=== PATIENT | female | born 1995 ===

== ENCOUNTER 2018-05-22 12:13 | Inpatient (IN) | payer OTHER ==
[2018-05-22] MEDS ORDERED: TYLENOL PO PRN (12:47)
[2018-05-22] MEDS ORDERED: TUCKS PAD TP PRN (12:47)
[2018-05-22] MEDS ORDERED: PHENERGAN PO PRN (12:47)
[2018-05-22] MEDS ORDERED: DULCOLAX PR PRN (12:47)
[2018-05-22] MEDS ORDERED: BENADRYL PO PRN (12:47)
[2018-05-22] MEDS ORDERED: ZOFRAN IV PRN (12:47)
[2018-05-22] MEDS ORDERED: LANSINOH TP PRN (12:47)
[2018-05-22] MEDS ORDERED: PHENERGAN PR PRN (12:47)
[2018-05-22] MEDS ORDERED: MILK OF MAGNESIA PO PRN (12:47)
--- NOTE | 2018-05-22 12:56 | History and Physical Report ---
History of Present Illness Date of examination: 05/22/18 Date of admission: 05/22/18 12:13 Chief complaint: Delivered baby History of present illness: 22yo Fe presents via EMS from [facility] where she delivered viable female infant this am at 10:30. She reports, "presenting to the clinic for pelvic pain and didn't know she was ." She has had no care. Pt thinks her LMP "was in July." appears term. Past History Past Medical History: no pertinent history Past Surgical History: no surgical history [employer] History: denies: abnormal PAP smear, chlamydia, gonorrhea, hepatitis B, hepatitis C, herpes, HIV, syphilis, trichomonas Family/Genetic History: none Social history: no significant social history, single, lives with family, full code. denies: smoking, alcohol abuse, prescription drug abuse, IV drug use - Obstetrical History : 2 Para: 2 Number of Pregnancies: 0 Spontaneous Abortions: 0 Induced : 0 Number of Living Children: 2 Medications and Allergies Active Meds: Active Medications Acetaminophen (Tylenol) 650 mg PO Q4H PRN PRN Reason: Pain MILD(1-3)/Fever >100.5/[place] Bisacodyl (Dulcolax) 10 mg AL BID PRN PRN Reason: Constipation Diphenhydramine HCl (Benadryl) 25 mg PO Q6H PRN PRN Reason: Itching Ibuprofen (Motrin) 600 mg PO Q6H VLADIMIR Magnesium Hydroxide (Milk Of Magnesia) 30 ml PO HS PRN PRN Reason: Constipation Multi-Ingredient Ointment (Lansinoh) 1 applic TP PRN PRN PRN Reason: Sore Nipples Ondansetron HCl (Zofran) 4 mg IV Q8H PRN PRN Reason: Nausea And Vomiting Promethazine HCl (Phenergan) 25 mg AL Q6H PRN PRN Reason: Nausea And Vomiting Promethazine HCl (Phenergan) 25 mg PO Q6H PRN PRN Reason: Nausea And Vomiting Sodium Chloride (Sodium Chloride Flush Syringe 10 Ml) 10 ml IV PRN NR Witch Magdalena/Glycerin (Tucks Pad) 1 each TP PRN PRN PRN Reason: Hemorrhoid/cleansing/soothing Review of Systems Eyes: normal appearance Cardiovascular: no chest pain, no shortness of breath Respiratory: no shortness of breath Breasts: normal Gastrointestinal: no nausea, no vomiting, no diarrhea, no constipation Genitourinary: vaginal bleeding (Normall PP lochia), no deferred, no genital sores Integumentary: no rash, no sores, no lesions - Vital Signs Vital signs: Vital Signs Pulse Pulse Ox 83 92 05/22/18 12:19 05/22/18 12:19 Temp Pulse Resp BP Pulse Ox 78 105/55 98 05/22/18 12:40 05/22/18 12:40 05/22/18 12:21 - Physical Exam Cardiovascular: Regular rate, Normal S1, Normal S2 Lungs: Positive: Clear to auscultation, Normal air movement Abdomen: Positive: normal appearance, soft, tenderness (as expected ) , normal bowel sounds. Negative: distention Vulva: both: laceration/episiotomy (small 1st degree, left unrepaired) Vagina: Positive: other (PP lochia) Uterus: Positive: enlarged (FF@U) Extremities: Positive: normal Deep Tendon Reflex Grade: Normal +2 Results All other labs normal. Assessment and Plan A: No care P: Admit workup Routine PP care UDS
[2018-05-22] MEDS ORDERED: SODIUM CHLORIDE FLUSH SYRINGE 10 ML IV NR (13:00)
--- NOTE | 2018-05-22 13:09 | Procedure Note ---
OB Delivery Note - Delivery Date of Delivery: 05/22/18 Surgeon: IVET LIEBERMAN (LAM) Estimated blood loss: 300cc - Vaginal Delivery presentation: vertex (Delivered at 10:30) Intrapartum events: no care, precipitous labor- <3hr, other(please specify) (Delivered in the bathroom at [facility], Transported to Hospital via EMS) Route of delivery: Delivery placenta: spontaneous Episiotomy: none Delivery laceration: 1st degree (small, left unrepaired) Anesthesia: none Delivery comments: Received pt per EMS post at [facility] this am at 10:30. Placenta delivered at office per Megan Beasley CNM prior to arrival. Perineum insepected , small first degree laceration left unrepaired. FF@U, small lochia. EBL 300. Per tanner rotary drum continuous process (Jus Silva) Health History obtained (see H&P). She denies any medical history. Denies drug use. Pt denies knowing she was . States she had "no signs or symptoms." Last 04/27/17. She thinks her LMP was "in July." - A Infant Gender: Female (3059grams, 6-12oz, 19")
[2018-05-22 17:18] LABS: Amphetamine Screen,Urine PRESUMPTIVE NEGATIVE; Benzodiazepines Screen,Urine PRESUMPTIVE NEGATIVE; Cannabinoid Screen,Urine PRESUMPTIVE NEGATIVE; Cocaine Screen,Urine PRESUMPTIVE NEGATIVE; Methadone Screen,Urine PRESUMPTIVE NEGATIVE; Opiate Screen,Urine PRESUMPTIVE NEGATIVE
[2018-05-22] MEDS: MOTRIN PO SCH (22:52)
[2018-05-23 01:10] LABS: Hematocrit 28.7 % (30.3-42.9); Hemoglobin 9.6 gm/dl (10.1-14.3)
[2018-05-23 01:35] LABS: Hematocrit 28.8 % (30.3-42.9); Hemoglobin 9.5 gm/dl (10.1-14.3); Mean Corpuscular HGB Conc 33 % (30-34); Mean Corpuscular Hemoglobin 30 pg (28-32); Mean Corpuscular Volume 91 fl (79-97); Platelet Count 172 K/mm3 (140-440); Red Blood Count 3.15 M/mm3 (3.65-5.03); Red Cell Distribution Width 14.2 % (13.2-15.2)
[2018-05-23] MEDS: MOTRIN PO SCH ×3 (05:21→18:15)
--- NOTE | 2018-05-23 09:46 | Progress Note ---
Assessment and Plan - Patient Problems (1) Status post normal vaginal delivery Current Visit: Yes Status: Acute Plan to address problem: PPD 1 - stable Continue routine PP orders Anticipate discharge in 24-48 hrs (2) Anemia in puerperium, baby delivered during current episode of care Current Visit: Yes Status: Acute Plan to address problem: Asymptomatic Initiate ferrous sulfate 325mg PO qd Subjective - Subjective Date of service: 05/23/18 Principal diagnosis: s/p ; PPD 1 Patient reports: appetite normal, voiding normally, pain well controlled, ambulating normally, no bowel movement : doing well, nursing well, bottle feeding Objective - Vital Signs Latest vital signs: Vital Signs Temp Pulse Resp BP BP Pulse Ox 05/23/18 07:50 98.2 F 87 20 129/71 95 05/23/18 05:52 98 F 75 20 115/59 05/23/18 05:21 18 05/23/18 01:01 98.6 F 77 20 108/46 98 05/22/18 22:52 18 05/22/18 17:20 98.8 F 95 H 16 113/50 97 05/22/18 14:12 98.6 F 78 16 105/55 98 05/22/18 12:40 78 105/55 05/22/18 12:25 80 107/61 05/22/18 12:21 76 98 05/22/18 12:19 83 92 Intake and Output 05/22/18 05/23/18 05/23/18 23:59 07:59 15:59 Intake Total 360 Output Total 1000 Balance -1000 360 Intake: Intake, Free Water 360 Output: Urine 1000 Void 1000 Other: Total, Output Amount 1000 # Voids Void 1 - Exam Abdomen: Present: normal appearance, soft Vulva: both: normal Uterus: Present: normal, firm, fundal height at umbilicus Extremities: Present: normal - Labs Labs: Abnormal lab results 05/23/18 05/23/18 Range/Units 00:40 00:41 WBC 12.6 H (4.5-11.0) K/mm3 RBC 3.15 L (3.65-5.03) M/mm3 Hgb 9.5 L 9.6 L (10.1-14.3) gm/dl Hct 28.8 L 28.7 L (30.3-42.9) %
[2018-05-23] MEDS: FEOSOL PO SCH (18:34)
[2018-05-24] MEDS: MOTRIN PO SCH (01:00)
--- NOTE | 2018-05-24 11:01 | Progress Note ---
Assessment and Plan A: day 2 S/P . P: Discharge patient home today. discharge instructions and warning signs discussed with patient. Advised pt. to avoid IC, avoid heavy housework and lifting, avoid driving. Advised pt. to follow up at [facility] office in 6 weeks and prn. Pt. voiced understanding of all instructions. Subjective - Subjective Date of service: 05/24/18 Principal diagnosis: s/p ; PPD 2 Interval history: day 2 S/P . Doing well. Bottlefeeding. Patient reports small amount of lochia. Voiding without difficulty. Ambulating well. Tolerating a regular diet without nausea or vomiting. Patient denies headache, visual disturbance, cough, chest pain, shortness of breath, abdominal pain, leg pain, heavy vaginal bleeding, or symptoms of depression. Patient plans to use OCPs for contraception at 6 weeks . Patient reports: appetite normal, voiding normally, pain well controlled, flatus , ambulating normally : doing well Objective - Vital Signs Latest vital signs: Vital Signs Temp Pulse Resp BP Pulse Ox 05/24/18 08:09 98.8 F 77 20 111/62 97 05/23/18 15:41 98.8 F 85 20 110/47 97 Intake and Output 05/23/18 05/24/18 05/24/18 23:59 07:59 15:59 Intake Total 1440 360 Balance 1440 360 Intake: Oral 1440 Intake, Free Water 360 Other: Total, Intake Amount 720 Voiding Method Toilet # Voids 2 Void 2 2 - Exam Breasts: Present: deferred Cardiovascular: Present: Regular rate, Normal S1, Normal S2 Lungs: Present: Clear to auscultation Abdomen: Present: normal appearance, soft, normal bowel sounds. Absent: distention, tenderness, guarding, rigidity Uterus: Present: normal, firm. Absent: bogginess, tenderness, fundal height below umbilicus Extremities: Present: normal. Absent: tenderness, edema
--- NOTE | 2018-05-24 11:05 | Discharge Summary ---
Providers - Providers Date of Admission: 05/22/18 12:13 Date of discharge: 05/24/18 Attending physician: CHRISTOPHER BASS MD None Primary care physician: CHRISTOPHER BASS MD Hospitalization Reason for admission: active labor Delivery: Episiotomy: none Laceration: 1st degree Other procedures: none complications: none Discharge diagnosis: IUP at term delivered [place] baby: female Pertinent studies: Labs Hospital course: Normal hospital course Condition at discharge: Good Disposition: DC-01 TO HOME OR SELFCARE Plan - Provider Discharge Summary Activity: routine, no sex for 6 weeks, no heavy lifting 4 weeks, no strenuous exercise Diet: routine Instructions: routine Additional instructions: Call your doctor immediately for: * Fever > 100.5 * Heavy vaginal bleeding ( >1 pad per hour) * Severe persistent headache * Shortness of breath * Reddened, hot, painful area to leg or breast * Continue taking your vitamins and iron supplements * - Follow up plan Follow up: CHRISTOPHER BASS MD [Primary Care Provider] - 6 Weeks
[2018-05-24 12:19] VITALS: BP 112/51
[2018-05-24] MEDS: FEOSOL PO SCH (14:00)
== END 2018-05-24 15:40 | disposition home or self-care (01) | DRG 775 ==
LOC: LD 12:13 → EDBD 12:13 → OB 19:34
PROVIDERS: ADMIT Obstetrics & Gynecology; ATTEND Obstetrics & Gynecology
PROC: 10E0XZZ Delivery of Products of Conception, External Approach (ICD-10-PCS; principal; 2018-05-22)
DX: O62.3 Precipitate labor (principal); O70.0 First degree perineal laceration during delivery; O90.81 Anemia of the puerperium; D64.9 Anemia, unspecified; Z37.0 Single live birth; Z3A.00 Weeks of gestation of pregnancy not specified
CPT/HCPCS: 36415; 80307; 85014; 85018; 85027; 86592; 86706; 86762; 86850; 86900; 86901; 87806; 99211; G0463